=== PATIENT | female | born 1990 | race Caucasian/White ===

== ENCOUNTER 2017-01-22 19:41 | Emergency (ER) | payer OTHER ==
[2017-01-22 20:55] VITALS: BP 99/62
--- NOTE | 2017-01-22 20:59 | PHYS DOC ---
Adult General Chief Complaint Chief Complaint: ABSCESS HPI HPI Patient is a 26 year old female who presents complaining of a bump on the left posterior scalp that she noted a couple days ago. Patient denies any known trauma. Denies any drainage from the area. Review of Systems Review of Systems Constitutional: Denies fever or chills [] Eyes: Denies change in visual acuity, redness, or eye pain [] HENT: Denies nasal congestion or sore throat [] Respiratory: Denies cough or shortness of breath [] Cardiovascular: No additional information not addressed in HPI [] GI: Denies abdominal pain, nausea, vomiting, bloody stools or diarrhea [] : Denies dysuria or hematuria [] Musculoskeletal: Denies back pain or joint pain [] Integument: Denies rash or skin lesions [] Neurologic: Reports bump on the left posterior scalp. Denies headache, focal weakness or sensory changes [] All other systems were reviewed and found to be within normal limits, except as documented in this note. Current Medications Current Medications Current Medications Medications (Trade) Dose Ordered Sig/Carlos Start Time Stop Time Status Last Admin Dose Admin Acetaminophen (Tylenol) 1,000 mg 1X ONCE 01/22/17 22:00 01/22/17 22:01 DC 01/22/17 21:48 1,000 MG Allergies Allergies Allergies Coded Allergies Type Severity Reaction Last Updated Verified No Known Drug Allergies 01/22/17 No Physical Exam Physical Exam Constitutional: Well developed, well nourished, no acute distress, non-toxic appearance. [] HENT: Normocephalic, atraumatic, bilateral external ears normal, oropharynx moist, no oral exudates, nose normal. [] Eyes: PERRLA, EOMI, conjunctiva normal, no discharge. [] Neck: Normal range of motion, no tenderness, supple, no stridor. [] Cardiovascular:Heart rate regular rhythm, no murmur [] Lungs & Thorax: Bilateral breath sounds clear to auscultation [] Abdomen: Bowel sounds normal, soft, no tenderness, no masses, no pulsatile masses. [] Skin: Warm, dry, no erythema, no rash. [] Back: No tenderness, no CVA tenderness. [] Extremities: No tenderness, no cyanosis, no clubbing, ROM intact, no edema. [] Neurologic: Alert and oriented X 3, normal motor function, normal sensory function, no focal deficits noted. Cranial nerves II through XII intact. No palpable masses noted on posterior scalp, no bruising on the posterior scalp. No redness. Psychologic: Affect normal, judgement normal, mood normal. [] Current Patient Data Vital Signs Vital Signs Date Time Temp Pulse Resp B/P (MAP) Pulse Ox O2 Delivery O2 Flow Rate FiO2 01/22/17 20:55 99.5 83 20 95 Room Air 99.5 EKG EKG [] Radiology/Procedures Radiology/Procedures []PROCEDURE: CT HEAD WO CONTRAST CT head without contrast 01/22/2017 CLINICAL INDICATION: Palpable abnormality at the back of the head. No known injury. COMPARISON: None. TECHNIQUE: Multiple CT images of the head were obtained without contrast according to standard protocol. *One or more of the following individualized dose reduction techniques were utilized for this examination: 1. Automated exposure control. 2. Adjustment of the mA and/or kV according to patient size. 3. Use of iterative reconstruction technique. FINDINGS: No acute intracranial hemorrhage or extra-axial fluid collection. The ventricles and subarachnoid spaces are normal in size and configuration. No midline shift. The basal cisterns are patent. The castañeda-white matter interfaces are maintained. There are multiple partially calcified subcutaneous nodules in the scalp. IMPRESSION: 1. No acute intracranial hemorrhage. 2. Multiple partially calcified scalp nodules, compatible with benign trichilemmal cysts. Electronically signed by: Dashawn Broderick MD (01/22/2017 9:51 PM) [facility] DICTATED and SIGNED BY: DASHAWN BRODERICK MD DATE: 01/22/172146 CC: BENJAMIN RIDDLE APRN; UNKNOWN PCP NAME ~ Course & Med Decision Making Course & Med Decision Making Pertinent Labs and Imaging studies reviewed. (See chart for details) Patient is in the ED with a bump on posterior scalp with no injury. CT of the head was negative for intracranial bleed, CT noted for multiple partially calcified scalp nodules, compatible with benign trichilemmal cysts. Patient has been asking for pain medicine since she came to the ED. We gave her Tylenol which she states is not helping. Informed patient she does not have any acute findings to warrant any narcotics. Gave her prescription for cyclobenzaprine and instructed her to take any Tylenol/Motrin with it. Gave her referral to churn driller helper, and neurosurgeon, urologist. Patient walked out of the Ed complaining about the Rx for Flexeril stating "If i want narcotics i will get them from the streets." Fadumo Disclaimer Amayaon Disclaimer This electronic medical record was generated, in whole or in part, using a voice recognition dictation system. Departure Departure Impression: Primary Impression: Trichilemmal cyst Disposition: HOME, SELF-CARE Condition: STABLE Referrals: OSMANI GR MD follow up in one week TRACY HAMEED MD follow up in one week RUTHIE OMALLEY MD follow up in one week Patient Instructions: Cyst Removal Additional Instructions: Your Ct was note for trichilemmal cysts, please follow up with your own doctor and the provided specialist in one week Scripts Cyclobenzaprine Hcl (CYCLOBENZAPRINE HCL) 10 Mg Tablet 1 TAB PO TID, #30 TAB Prov: BENJAMIN RIDDLE APRN 01/22/17 BENJAMIN RIDDLE APRN Jan 22, 2017 20:59
--- NOTE | 2017-01-22 21:55 | RAD ---
CT head without contrast 01/22/2017 CLINICAL INDICATION: Palpable abnormality at the back of the head. No known injury. COMPARISON: None. TECHNIQUE: Multiple CT images of the head were obtained without contrast according to standard protocol. *One or more of the following individualized dose reduction techniques were utilized for this examination: 1. Automated exposure control. 2. Adjustment of the mA and/or kV according to patient size. 3. Use of iterative reconstruction technique. FINDINGS: No acute intracranial hemorrhage or extra-axial fluid collection. The ventricles and subarachnoid spaces are normal in size and configuration. No midline shift. The basal cisterns are patent. The castañeda-white matter interfaces are maintained. There are multiple partially calcified subcutaneous nodules in the scalp. IMPRESSION: 1. No acute intracranial hemorrhage. 2. Multiple partially calcified scalp nodules, compatible with benign trichilemmal cysts. Electronically signed by: Steve Broderick MD (01/22/2017 9:51 PM) [facility]
[2017-01-22] MEDS ORDERED: ACETAMINOPHEN 500 MG TABLET PO ONE (22:00)
[2017-01-22] MEDS ORDERED: CYCL10TA2 PO (22:16)
== END 2017-01-22 22:41 | disposition home or self-care (01) ==
LOC: ER 19:41
DX: L72.12 Trichodermal cyst (principal)
CPT/HCPCS: 70450; 99284-25

== ENCOUNTER → 2017-01-28 | Outpatient (CLI) | payer OTHER ==
[2017-01-22 20:55] VITALS: BP 99/62
[~2017-01-28] MED LIST: CYCL10TA2 PO
== END | disposition home or self-care (01) ==
LOC: LAB 11:13
DX: Z30.432 Encounter for removal of intrauterine contraceptive device (principal); Z78.9 Other specified health status
CPT/HCPCS: 36415; 84443; 84702

== ENCOUNTER 2018-03-13 18:44 | Emergency (ER) | payer OTHER ==
[~2018-03-13] VITALS: Ht 167.6 cm; Wt 78.9 kg
[2018-03-13 19:42] LABS: BASO # 0.1 x10^3/uL (0.0-0.2); BASO % 1 % (0-3); EOS # 0.1 x10^3/uL (0.0-0.7); EOS % 1 % (0-3); HEMATOCRIT 39.1 % (36.0-47.0); HEMOGLOBIN 13.4 g/dL (12.0-15.5); LYMPH # 2.5 x10^3/uL (1.0-4.8); LYMPH % 22 % (24-48); MEAN CORPUSCULAR HEMOGLOBIN 29 pg (25-35); MEAN CORPUSCULAR HGB CONC 34 g/dL (31-37); MEAN CORPUSCULAR VOLUME 83 fL (79-100); MONO # 0.8 x10^3/uL (0.0-1.1); MONO % 7 % (0-9); NEUT # 8.2 x10^3uL (1.8-7.7); NEUT % 70 % (31-73); PLATELET COUNT 262 x10^3/uL (140-400); RED BLOOD COUNT 4.71 x10^6/uL (3.50-5.40); RED CELL DISTRIBUTION WIDTH 12.7 % (11.5-14.5); WHITE BLOOD COUNT 11.6 x10^3/uL (4.0-11.0)
[2018-03-13 20:19] VITALS: BP 118/90
--- NOTE | 2018-03-13 20:20 | RAD ---
OB ultrasound study less than 14 weeks Clinical indications: Vaginal bleeding. Findings: Transabdominal study: Number of fetuses: Single. Average crown-rump length: 3.73 cm which corresponds to an approximate gestational age of 10 weeks and 4 days +/- 7 days. EDC is October 05, 2018. EDC based on LMP is September 05, 2018. Sac shape and amniotic fluid volume: Normal. heart rate: 157 beats per minute Placenta location: Indeterminate due to the early stage of gestation. Cervical length: Greater than 3.0 cm. Extrachorionic hemorrhage: None. Uterus: No uterine fibroids are seen. Maternal ovaries: Right ovary: 1.9 cm x 3.9 cm x 2.3 cm. Normal. Color-flow Doppler: Present. Left ovary: 3.6 cm x 1.5 cm x 1.4 cm. Normal. Color-flow Doppler: Present. Adnexa: no adnexal masses are seen. Free fluid: None. Impression: Single intrauterine gestation with approximate gestational age of 10 weeks and 4 days with an EDC of October 05, 2018. heart rate is 157 beats per minute. Electronically signed by: Edenilson Castro MD (03/13/2018 8:16 PM) [facility]
--- NOTE | 2018-03-13 20:53 | PHYS DOC ---
Past Medical History Past Medical History: Depression Past Surgical History: , Other Additional Past Surgical Histo: Left knee, D&C x5, Neck/Vein Surg., Cerclage Alcohol Use: None Drug Use: Marijuana Adult General Chief Complaint Chief Complaint: VAGINAL BLEEDING HPI HPI Patient is 27 yo female who presents with complaint of vaginal bleeding that began around 7:30. She reports she was out dancing, decided to sit down, felt "like I peed my pants", and found dark red blood in her underwear. She reports she has had 2 previous miscarriages with vaginal bleeding during , however she felt severe cramping. She denies cramping or abdominal pain/discomfort today. Also denies chest pain, SOA, headache, weakness, fatigue , diarrhea, dysuria. [facility] and although she has established care with Dr. Villarreal (OBN) and had confirmed, her first trimester US is on Thursday. She denies any recent trauma. She reports PMH of anemia. She also reports she is on zofran for morning sickness. She admits to current every day tobacco use and some CBD use. She denies other drug or etoh use. After partner was asked to step out, patient confirmed that she was not concerned about STDs and "was checked for all of that 7 months ago". Review of Systems Review of Systems Constitutional: Denies fever or chills [] Eyes: Denies change in visual acuity, redness, or eye pain [] HENT: Denies nasal congestion or sore throat [] Cardiovascular: Denies chest pain, palpitations GI: Denies abdominal pain, Admits nausea and vomiting, denies bloody stools or diarrhea [] : Denies dysuria. Admits bloody vaginal discharge Musculoskeletal: Denies back pain or joint pain [] Integument: Denies rash or skin lesions [] Neurologic: Denies headache, focal weakness or sensory changes [] Complete systems were reviewed and found to be within normal limits, except as documented in this note. Current Medications Current Medications Current Medications Medications (Trade) Dose Ordered Sig/Carlos Start Time Stop Time Status Last Admin Dose Admin Metronidazole (Flagyl) 500 mg 1X ONCE 03/13/18 21:00 03/13/18 21:01 DC 03/13/18 21:11 500 MG Allergies Allergies Allergies Coded Allergies Type Severity Reaction Last Updated Verified No Known Drug Allergies 01/22/17 No Physical Exam Physical Exam Constitutional: Well developed, well nourished, no acute distress, non-toxic appearance. [] HENT: Normocephalic, atraumatic, Eyes: EOMI, conjunctiva normal, no discharge. [] Neck: Normal range of motion Cardiovascular: Heart rate regular rhythm, no murmur [] Lungs & Thorax: Bilateral breath sounds clear to auscultation [] Abdomen:Soft, no tenderness Pelvic: No external lesions/masses/discoloration. Moderate dark red, clotted blood in vaginal vault. Cervix easily visualized, external os closed with no blood or discharge through os. No lesions or discoloration on cervix. Minimal cervical motion tenderness on bimanual exam. Ovaries not palpable. Inspector Balance Bridge RN Skin: Warm, dry, no erythema, no rash. [] Back: No tenderness Extremities: No tenderness, no cyanosis, no clubbing, ROM intact, no edema, no palpable cords. Neurologic: Alert and oriented X 3, normal motor function, normal sensory function, no focal deficits noted. [] Psychologic: Affect normal, judgement normal, mood normal. [] Current Patient Data Vital Signs Vital Signs Date Time Temp Pulse Resp B/P (MAP) Pulse Ox O2 Delivery O2 Flow Rate FiO2 03/13/18 20:19 101 118/90 (99) Room Air 03/13/18 19:54 99 03/13/18 18:59 98.8 16 98.8 Lab Values Laboratory Tests Test 03/13/18 19:10 White Blood Count 11.6 x10^3/uL (4.0-11.0) H Red Blood Count 4.71 x10^6/uL (3.50-5.40) Hemoglobin 13.4 g/dL (12.0-15.5) Hematocrit 39.1 % (36.0-47.0) Mean Corpuscular Volume 83 fL (79-100) Mean Corpuscular Hemoglobin 29 pg (25-35) Mean Corpuscular Hemoglobin Concent 34 g/dL (31-37) Red Cell Distribution Width 12.7 % (11.5-14.5) Platelet Count 262 x10^3/uL (140-400) Neutrophils (%) (Auto) 70 % (31-73) Lymphocytes (%) (Auto) 22 % (24-48) L Monocytes (%) (Auto) 7 % (0-9) Eosinophils (%) (Auto) 1 % (0-3) Basophils (%) (Auto) 1 % (0-3) Neutrophils # (Auto) 8.2 x10^3uL (1.8-7.7) H Lymphocytes # (Auto) 2.5 x10^3/uL (1.0-4.8) Monocytes # (Auto) 0.8 x10^3/uL (0.0-1.1) Eosinophils # (Auto) 0.1 x10^3/uL (0.0-0.7) Basophils # (Auto) 0.1 x10^3/uL (0.0-0.2) Maternal Serum HCG Beta Subunit 33248 mIU/mL (0-5) H Laboratory Tests 03/13/18 19:10 Microbiology 03/13/18 Wet Prep - Final, Complete EKG EKG [] Radiology/Procedures Radiology/Procedures [PROCEDURE: OB < 14 WKS OB ultrasound study less than 14 weeks Clinical indications: Vaginal bleeding. Findings: Transabdominal study: Number of fetuses: Single. Average crown-rump length: 3.73 cm which corresponds to an approximate gestational age of 10 weeks and 4 days +/- 7 days. EDC is October 05, 2018. EDC based on LMP is September 05, 2018. Sac shape and amniotic fluid volume: Normal. heart rate: 157 beats per minute Placenta location: Indeterminate due to the early stage of gestation. Cervical length: Greater than 3.0 cm. Extrachorionic hemorrhage: None. Uterus: No uterine fibroids are seen. Maternal ovaries: Right ovary: 1.9 cm x 3.9 cm x 2.3 cm. Normal. Color-flow Doppler: Present. Left ovary: 3.6 cm x 1.5 cm x 1.4 cm. Normal. Color-flow Doppler: Present. Adnexa: no adnexal masses are seen. Free fluid: None. Impression: Single intrauterine gestation with approximate gestational age of 10 weeks and 4 days with an EDC of October 05, 2018. heart rate is 157 beats per minute. Electronically signed by: Edenilson Castro MD (03/13/2018 8:16 PM) [facility]] Course & Med Decision Making Course & Med Decision Making Patient is 27 yo who presents with vaginal bleeding. She reports she felt like she urinated on herself after dancing and found dark red blood in her underwear. On physical exam patient's vitals are WNL, and she is resting comfortably in bed with partner at bedside. Pelvic exam revealed dark, clotted blood in vaginal block with closed external os with no blood or vaginal discharge through os. Remainder of physical exam unremarkable. Lab work revealed minimally elevated WBC, clue cells [place] wet mount, [place] [address] , and Rh+. Sent GC/chlanydia cultures and notified patient we will call her with result. Transabdominal US reveals single IUP that correlates to 10 weeks with HR 157 BPM. Patient reports that she has appointment with OBGYN ( [facility]) on Thursday. Discussed with patient that d/t presence of clue cells and vaginal bleeding during it is appropriate to treat patient with metronidazole for vaginosis. Also instructed patient to return to ED if symptoms continue or worsen. Finally, discussed with patient that she should follow up with OBGYN on Thursday and gave patient copy of US report. Patient stable for discharge with outpatient follow-up with PCP and Dr. Villarreal ( OBGYN). Discussed findings and plan with patient and family, who acknowledge understanding and agreement. Dragon Disclaimer Dragon Disclaimer This electronic medical record was generated, in whole or in part, using a voice recognition dictation system. Departure Departure Impression: Primary Impression: Threatened miscarriage Additional Impression: Bacterial vaginosis Disposition: HOME, SELF-CARE Condition: STABLE Referrals: NO PCP (PCP) LRAISA VILLARREAL Jr, MD Patient Instructions: Bacterial Vaginosis, [id number], Threatened Miscarriage , [id number] Scripts Metronidazole (METRONIDAZOLE) 500 Mg Tablet 1 TAB PO BID, #14 TAB Prov: DAY JOHNS DO 03/13/18 Problem Qualifiers DAY JOHNS DO Mar 13, 2018 20:53
[2018-03-13] MEDS ORDERED: METR-84 PO (20:56)
[2018-03-13] MEDS ORDERED: metroNIDAZOLE 500 MG TABLET PO ONE (21:00)
[2018-03-15 14:23] LABS: GC PROBE Negative (Negative)
== END 2018-03-13 21:20 | disposition home or self-care (01) ==
LOC: ER 18:44
DX: O20.0 Threatened abortion (principal); O23.591 Infection of other part of genital tract in pregnancy, first trimester; B96.89 Other specified bacterial agents as the cause of diseases classified elsewhere; O99.341 Other mental disorders complicating pregnancy, first trimester; F32.9 Major depressive disorder, single episode, unspecified; O99.331 Smoking (tobacco) complicating pregnancy, first trimester; Z3A.10 10 weeks gestation of pregnancy
CPT/HCPCS: 36415; 76801; 84702; 85025; 86901; 87491; 87591; 99284; Q0111

== ENCOUNTER → 2018-05-14 | Outpatient (CLI) | payer OTHER ==
[~2018-05-14] MED LIST changes: +METR-34 PO
--- NOTE | 2018-05-14 16:22 | RAD ---
Obstetrical ultrasound, 05/14/2018: HISTORY: Uterine size/date discrepancy There is a single intrauterine fetus present in a cephalic orientation. The biparietal diameter measures 4.6 cm compatible with a gestational age of 19 weeks and 6 days. The gestational age based on all of the measurements is 20 weeks and 2 days yielding a sonographic EDC of 09/29/2018. This correlates well with the EDC of 10/05/2018 established on the previous study of 03/13/2018. Normal activity and heart motion are seen. A four-chamber heart is present with a heart rate of 137 bpm. Fluid is identified in the bladder and stomach. The visualized portions of the kidneys and spine are unremarkable. A three-vessel umbilical cord is identified with a normal cord insertion site. A normal amount of amniotic fluid is present. The placental is located anteriorly. There is no evidence of placenta previa. The cervical length is 3.5 cm. IMPRESSION: Single viable intrauterine fetus of 20-21 weeks gestational age demonstrating satisfactory interval growth since 03/13/2018. Electronically signed by: Wes Rudolph MD (05/14/2018 4:19 PM) [facility]
== END | disposition home or self-care (01) ==
LOC: US 13:47
PROVIDERS: ATTEND Obstetrics & Gynecology
DX: O26.849 Uterine size-date discrepancy, unspecified trimester (principal); Z3A.20 20 weeks gestation of pregnancy
CPT/HCPCS: 76805

== ENCOUNTER → 2018-07-19 | Outpatient (CLI) | payer OTHER | END | disposition home or self-care (01) | LOC: LAB 09:53 | PROVIDERS: ATTEND Obstetrics & Gynecology | DX: O09.90 Supervision of high risk pregnancy, unspecified, unspecified trimester (principal); Z3A.00 Weeks of gestation of pregnancy not specified | CPT/HCPCS: 36415; 82947; 82950 ==

== ENCOUNTER → 2018-07-22 | Outpatient (CLI) | payer OTHER ==
--- NOTE | 2018-07-22 14:07 | KCIC ---
MR of the right forefoot HISTORY: Mass at the plantar surface of the first toe for several months TECHNIQUE: Routine multiplanar sequences are obtained through the right distal foot. FINDINGS: Soft tissue mass identified plantar to the distal aspect of the proximal first phalanx. Measures 2.3 cm x 1.2 cm x 0.7 cm. This demonstrates heterogeneous hyperintense T2 signal and mildly hyperintense T1 signal. Margins are well-defined. The mass is plantar to the first flexor tendon. The flexor tendon is intact without tendon sheath fluid. No acute sesamoiditis. No evidence of acute fracture, bone destruction or marrow edema. No significant joint effusion. Other tendons and the forefoot are intact. IMPRESSION: Soft tissue lesion identified plantar to the head of the proximal first phalanx. Nonspecific by MRI, could represent a complex cyst or solid mass. Abscess considered unlikely given the lack of inflammatory type changes in the surrounding fluid. The lesion is separate from and superficial to the flexor tendons. Electronically signed by: Vitor Penaloza MD (07/22/2018 2:04 PM) [facility]
== END | disposition home or self-care (01) ==
LOC: KCIC MRI 13:00
PROVIDERS: ATTEND Podiatrist
DX: J39.2 Other diseases of pharynx (principal)
CPT/HCPCS: 73718

== ENCOUNTER 2020-11-27 17:38 | Emergency (ER) | payer OTHER ==
[~2020-11-27] VITALS: Ht 167.6 cm; Wt 92.0 kg
[2020-11-27 18:08] LABS: BASO # 0.1 x10^3/uL (0.0-0.2); BASO % 1 % (0-3); EOS # 0.2 x10^3/uL (0.0-0.7); EOS % 1 % (0-3); HEMATOCRIT 39.7 % (36.0-47.0); HEMOGLOBIN 13.9 g/dL (12.0-15.5); LYMPH # 2.9 x10^3/uL (1.0-4.8); LYMPH % 26 % (24-48); MEAN CORPUSCULAR HEMOGLOBIN 30 pg (25-35); MEAN CORPUSCULAR HGB CONC 35 g/dL (31-37); MEAN CORPUSCULAR VOLUME 85 fL (79-100); MONO # 0.8 x10^3/uL (0.0-1.1); MONO % 7 % (0-9); NEUT # 7.1 x10^3/uL (1.8-7.7); NEUT % 65 % (31-73); PLATELET COUNT 288 x10^3/uL (140-400); RED BLOOD COUNT 4.67 x10^6/uL (3.50-5.40); RED CELL DISTRIBUTION WIDTH 13.2 % (11.5-14.5)
[2020-11-27 18:23] LABS: CALCIUM 8.6 mg/dL (8.5-10.1); CREATININE 0.8 mg/dL (0.6-1.0); GFR 83.1; POTASSIUM 3.7 mmol/L (3.5-5.1)
[2020-11-27 18:28] LABS: ALBUMIN 3.9 g/dL (3.4-5.0); ALBUMIN/GLOBULIN RATIO 1.1 (1.0-1.7); TOTAL BILIRUBIN 0.4 mg/dL (0.2-1.0); TOTAL PROTEIN 7.4 g/dL (6.4-8.2)
[2020-11-27] MEDS ORDERED: IV NORMAL SALINE 1000ML BAG 1,000 ML IV SCH (18:30)
[2020-11-27] MEDS ORDERED: ASPIRIN CHEWABLE 81 MG TABLET. PO ONE (18:30)
--- NOTE | 2020-11-27 18:44 | RAD ---
AP chest. HISTORY: Chest pain AP view was taken of the chest. Lungs are clear. Heart is normal in size. There is no pleural effusio n. IMPRESSION: 1. No acute chest disease. Electronically signed by: Osman Mckinley MD (11/27/2020 6:41 PM) [facility]
[2020-11-27] MEDS ORDERED: fentaNYL PF VIAL 100 MCG/2 ML VIAL IVP ONE (18:45)
--- NOTE | 2020-11-27 18:50 | PHYS DOC ---
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 She rates it a 10 out of 10. Patient is hyperventilating very anxious in the room. She states nothing stressful happened and she denies any current injury. Pain cannot be reproduced with palpation or movement. She states nothing is making the pain worse or better. She is a history of cerclage, smoking, anxiety, alcoholism, depression, hysterectomy, , D&C x5. Review of Systems: Review of Systems: Constitutional: Denies fever or chills. [] Eyes: Denies change in visual acuity. [] HENT: Denies nasal congestion or sore throat. [] Respiratory: Denies cough or shortness of breath. [] Cardiovascular: + chest pain or denies edema. [] GI: Denies abdominal pain, nausea, vomiting, bloody stools or diarrhea. [] : Denies dysuria. [] Musculoskeletal: + Mid back back pain or denies joint pain. [] Integument: Denies rash. [] Neurologic: Denies headache, focal weakness or sensory changes. [] Endocrine: Denies polyuria or polydipsia. [] Lymphatic: Denies swollen glands. [] Psychiatric: Denies depression or+ anxiety. [] Heart Score: C/O Chest Pain: Yes HEART Score for Chest Pain: HEART Score for Chest Pain Response (Comments) Value History Slighlty/Non-Suspicious 0 ECG Nonspecific Repolarizatio 1 Age < 45 0 Risk Factors 1 or 2 Risk Factors 1 Troponin < Normal Limit 0 Total 2 Risk Factors: Risk Factors: DM, Current or recent (<one month) smoker, HTN, HLP, family history of CAD, obesity. Risk Scores: Score 0 - 3: 2.5% MACE over next 6 weeks - Discharge Home Score 4 - 6: 20.3% MACE over next 6 weeks - Admit for Clinical Observation Score 7 - 10: 72.7% MACE over next 6 weeks - Early Invasive Strategies Current Medications: Current Medications Medications (Trade) Dose Ordered Sig/Carlos Start Time Stop Time Status Last Admin Dose Admin Aspirin (Aspirin Chewable) 324 mg 1X ONCE 11/27/20 18:30 11/27/20 18:31 DC 11/27/20 18:29 324 MG Sodium Chloride 1,000 ml @ 1,000 mls/hr Q1H 11/27/20 18:30 11/27/20 19:29 11/27/20 18:32 1,000 MLS/HR Allergies: Allergies: Allergies Coded Allergies Type Severity Reaction Last Updated Verified diphenhydramine Allergy Intermediate 11/27/20 Yes red dye Allergy Unknown 11/27/20 Yes Physical Exam: PE: Constitutional: Well developed, well nourished, no acute distress, non-toxic appearance. [] HENT: Normocephalic, atraumatic, bilateral external ears normal, oropharynx moist, no oral exudates, nose normal. [] Eyes: PERRLA, EOMI, conjunctiva normal, no discharge. [] Neck: Normal range of motion, no tenderness, supple, no stridor. [] Cardiovascular:Heart rate regular rhythm, no murmur [] Lungs & Thorax: Bilateral breath sounds clear to auscultation. Hyperventilating [] Abdomen: Bowel sounds normal, soft, no tenderness, no masses, no pulsatile masses. [] Skin: Warm, dry, no erythema, no rash. [] Back: No tenderness, no CVA tenderness. [] Extremities: No tenderness, no cyanosis, no clubbing, ROM intact, no edema. [] Neurologic: Alert and oriented X 3, normal motor function, normal sensory function, no focal deficits noted. [] Psychologic: Affect normal, judgement normal, mood normal. [] Current Patient Data: Labs: Laboratory Tests Test 11/27/20 17:47 White Blood Count 11.0 x10^3/uL (4.0-11.0) Red Blood Count 4.67 x10^6/uL (3.50-5.40) Hemoglobin 13.9 g/dL (12.0-15.5) Hematocrit 39.7 % (36.0-47.0) Mean Corpuscular Volume 85 fL (79-100) Mean Corpuscular Hemoglobin 30 pg (25-35) Mean Corpuscular Hemoglobin Concent 35 g/dL (31-37) Red Cell Distribution Width 13.2 % (11.5-14.5) Platelet Count 288 x10^3/uL (140-400) Neutrophils (%) (Auto) 65 % (31-73) Lymphocytes (%) (Auto) 26 % (24-48) Monocytes (%) (Auto) 7 % (0-9) Eosinophils (%) (Auto) 1 % (0-3) Basophils (%) (Auto) 1 % (0-3) Neutrophils # (Auto) 7.1 x10^3/uL (1.8-7.7) Lymphocytes # (Auto) 2.9 x10^3/uL (1.0-4.8) Monocytes # (Auto) 0.8 x10^3/uL (0.0-1.1) Eosinophils # (Auto) 0.2 x10^3/uL (0.0-0.7) Basophils # (Auto) 0.1 x10^3/uL (0.0-0.2) Sodium Level 139 mmol/L (136-145) Potassium Level 3.7 mmol/L (3.5-5.1) Chloride Level 106 mmol/L (98-107) Carbon Dioxide Level 21 mmol/L (21-32) Anion Gap 12 (6-14) Blood Urea Nitrogen 12 mg/dL (7-20) Creatinine 0.8 mg/dL (0.6-1.0) Estimated GFR (Cockcroft-Gault) 83.1 BUN/Creatinine Ratio 15 (6-20) Glucose Level 91 mg/dL (70-99) Calcium Level 8.6 mg/dL (8.5-10.1) Total Bilirubin 0.4 mg/dL (0.2-1.0) Aspartate Amino Transferase (AST) 18 U/L (15-37) Alanine Aminotransferase (ALT) 27 U/L (14-59) Alkaline Phosphatase 81 U/L (46-116) Troponin I Quantitative < 0.017 ng/mL (0.000-0.055) JB-Khs-S-Type Natriuretic Peptide 44 pg/mL (0-124) Total Protein 7.4 g/dL (6.4-8.2) Albumin 3.9 g/dL (3.4-5.0) Albumin/Globulin Ratio 1.1 (1.0-1.7) Lipase 80 U/L (73-393) Laboratory Tests 11/27/20 17:47 Laboratory Tests 11/27/20 17:47 Vital Signs: Vital Signs Date Time Temp Pulse Resp B/P (MAP) Pulse Ox O2 Delivery O2 Flow Rate FiO2 11/27/20 17:46 98.6 73 24 124/53 (76) 100 Room Air 98.6 EKG: EK and read by Dr. Lau as sinus rhythm with a ventricular premature complex. Radiology/Procedures: Radiology/Procedures: [] Impression: [facility] [id number] [place], [place] [id number] IMAGING REPORT Signed PATIENT: MAYDA CHINCHILLA ACCOUNT: [id number] : 1990 LOCATION: ER AGE: 30 SEX: F EXAM STATUS: REG ER ORD. PHYSICIAN: ELSI BRANTLEY APRN REASON: chest pain pt had hysterectomy PROCEDURE: PORTABLE CHEST 1V AP chest. HISTORY: Chest pain AP view was taken of the chest. Lungs are clear. Heart is normal in size. There is no pleural effusion. IMPRESSION: 1. No acute chest disease. Electronically signed by: Osman Mckinley MD (11/27/2020 6:41 PM) [facility] DICTATED and SIGNED BY: OSMAN MCKINLEY MD DATE: 11/27/20 [id number] 0 Course & Med Decision Making: Course & Med Decision Making Pertinent Labs and Imaging studies reviewed. (See chart for details) See HPI. Alert and oriented x4. Ambulatory with a steady gait. Speaks in full clear sentences. Lungs are clear all station all lobes. Vital signs are within normal limits. Skin pink warm and dry. Patient is very anxious and hyperventilating. She is given aspirin in the ED. Positive nitrite UTI. Patient is given Rocephin 1 g in the ED. Negative D- dimer. Ativan, fentanyl, aspirin has helped her feel better. I think this was likely a panic or anxiety attack. Her vital signs are within normal limits. [] Dragon Disclaimer: Dragon Disclaimer: This electronic medical record was generated, in whole or in part, using a voice recognition dictation system. Departure Departure Impression: Primary Impression: Chest pain, non-cardiac Additional Impressions: Anxiety UTI (urinary tract infection) Qualified Codes: N30.00 - Acute cystitis without hematuria Disposition: HOME / SELF CARE / HOMELESS Condition: STABLE Referrals: MINA NAVARRO MD (PCP) Patient Instructions: Anxiety and Panic Attacks, Chest Pain (Nonspecific), Urinary Tract Infection Additional Instructions: Drink plenty of fluids. Take medication as prescribed and with food. Follow-up with your primary care provider as soon as possible. Continue taking all your medications daily. If any of your symptoms worsen return to the emergency room. Scripts Cephalexin (KEFLEX) 500 Mg Capsule 1 CAP PO TID, #30 CAP Prov: ELSI BRANTLEY APRN 11/27/20 ELSI BRANTLEY APRN Nov 27, 2020 18:50
[2020-11-27] MEDS ORDERED: IV NORMAL SALINE 1000ML BAG 1,000 ML IV ONE (19:30)
[2020-11-27 20:52] LABS: BILIRUBIN,URINE NEGATIVE (NEG); CLARITY,URINE CLEAR; COLOR,URINE YELLOW; NITRITE,URINE POSITIVE (NEG); PH,URINE 5.5 (<5.0-8.0); PROTEIN,URINE NEGATIVE (NEG-TRACE); UROBILINOGEN,URINE 0.2 mg/dL (0.2 mg/dL)
[2020-11-27 20:57] LABS: BARBITURATES NEG (NEG); BENZODIAZEPINES NEG (NEG); CANNABINOIDS POS (NEG); COCAINE NEG (NEG); METHADONE NEG (NEG); OPIATES NEG (NEG); PHENCYCLIDINE NEG (NEG)
[2020-11-27 20:58] LABS: AMPHETAMINE/METHAMPHETAMINE NEG (NEG)
[2020-11-27 21:01] LABS: BACTERIA,URINE MANY /HPF (0-FEW); RBC,URINE 0 /HPF (0-2)
[2020-11-27 21:09] VITALS: BP 109/55
[2020-11-27] MEDS ORDERED: CEPH500C PO (21:13)
[2020-11-27] MEDS ORDERED: cefTRIAXone IV Push 1 GM VIAL. IVP ONE (21:15)
== END 2020-11-27 21:28 | disposition home or self-care (01) ==
LOC: ER 17:38
DX: N30.00 Acute cystitis without hematuria (principal); R07.89 Other chest pain; F41.9 Anxiety disorder, unspecified; F17.200 Nicotine dependence, unspecified, uncomplicated; Z90.710 Acquired absence of both cervix and uterus; Z88.5 Allergy status to narcotic agent; Z91.041 Radiographic dye allergy status
CPT/HCPCS: 36415; 71045; 80053; 80307; 81001; 81025; 83690; 83735; 83880; 84484; 85025; 85379; 87086; 93005; 96361; 96374; 96375; 99285; J0696; J2060; J3010; J7030; 87077; 87186